=== PATIENT | female | born 1990 | race Caucasian/White ===

== ENCOUNTER 2022-07-19 18:28 | Outpatient (CLI) | payer BC, SELFPAY ==
--- OUTSIDE RECORDS SUMMARY | 2022-07-19 18:32 | XMS_ITS ---
:1990 Author Care Team Providers Name Role Phone Erendira Aguilar Primary Care Provider Unavailable Allergies Code Code System Name Reaction Severity Status Onset NKDA ? Notes: 03/27/2020: NO KNOWN DRUG ALLER GIES *Note: 09/02/2019 - Medications Name Status Start Date Stop Date ? ? aspirin 81 mg chewable tablet Completed ? erythromycin 5 mg/gram (0.5 %) eye ointment Completed ? 05/26/2020 hydrocodone 5 mg-acetaminophen 325 mg tablet Completed ? 05/26/2020 hydroxyzine pamoate 25 mg capsule Completed ? 05/26/2020 ibuprofen 200 mg tablet Completed ? 05/26/20 ibuprofen 600 mg tablet Completed ? 05/26/20 June FE 1.5/30 (28) 1.5 mg-30 mcg (21)/75 mg (7) tablet Active ? Not available TAKE 1 TABLET BY MOUTH EVERY DAY DIRECTED norethindrone acetate 1.5 mg-ethinyl estradiol 30 mcg tablet Act guy ? Not available Take one tablet po qd as directed oxycodone 5 mg tablet Completed ? 05/26/2020 paroxetine 10 mg tablet Active ? Not avai lable paroxetine 20 mg tablet Active ? Not avai lable Take one tablet po qd Senexon-S 8.6 mg-50 mg tablet Completed ? Problems None recorded. Procedures Date Name Performed by ? ? Insert Intrauterine Device Information n ot available Notes: *Surgery Date: 05/17/11 *Notes: ParaGard ? Remove Intrauterine Device Information n ot available Notes: *Surgery Date: 07/08/11 *Notes: Partial expuslion, removed ? Section Information not jaquiai labangela Notes: *Surgery Date: 07-28 *Notes: 08-15-18 Repeat c/s - Eduardo 08-20-12 LASHNADA - Janice Alfred 02/11/2021 US, Pelvis, Transabdominal + Transvagina l [id number] [place] [address] (Work Place) Results Lab Results Date Name Specimen Result Interpretation Description Value Range Status Address ? 05/26/2020 Hemoglobin ? Fingerstick 13.3 12.0-15.0 ? [id number]: (Hb), Hemoglobin g/dL g/dL [address] [facility] [place] [address], [address] [facility] [place] Blood Past Encounters 03/17/2021 Mixed Anxiety and Depressive Disorder Erendira Aguilar CNM: [address] [facility], [place] [email or web address], [address] [address], [place]. 02/11/2021 Congenital Uterine Anomaly Erendira Aguilar CNM: [address] [facility], [place] pritchard, [address] [address], Ph. 02/11/2021 Amenorrhea Carli Argueta MD: [address] [facility] [place], [address] [address], Ph. 02/05/2021 Mixed Anxiety and Depressive Disorder; C ramping Pain Erendira Aguilar CNM: [address] [facility], [place] corey, [address] [address], Ph. Social History Tobacco Smoking Status Former Smoker Vaccine List Vaccine Type HPV, unspecified formulation 12/31/2015 HPV9 03/16/2016 07/18/2016 influenza, injectable, quadrivalent, pre servative free 06/25/2018 influenza, seasonal, injectable 05/28/2012 Tdap 05/10/2005 05/10/2005 10/02/2012 06/25/2018 Plan of Care Reminders Provider Appointments None recorded. ? ? Lab None recorded. ? ? Referral None recorded. ? ? Procedures None recorded. ? ? Surgeries None recorded. ? ? Imaging None recorded. ? ? Vitals 02/11/2021 10:30AM G_OFFICE VISIT Height Weight BMI Blood Pressure 4 ft 11 in 134/88 mm[Hg] 02/05/2021 09:30AM G_OFFICE VISIT Height Weight BMI Blood Pressure 4 ft 11 in 193 lbs 39 kg/m2 138/90 mm[Hg] 05/26/2020 11:00AM G_ANNUAL EXAM Height Weight BMI Blood Pressure 4 ft 11 in 190.2 lbs 38.4 kg/m2 130/88 mm[Hg] 09/24/2018 Height Weight BMI Blood Pressure 4 ft 11.04 in 164.38 lbs 33.20 kg/m2 118/76 mm[Hg] 08/23/2018 Height Weight BMI Blood Pressure 4 ft 11.04 in 173.5 lbs 35.04 kg/m2 118/82 mm[Hg] 01/10/2018 Height Weight BMI Blood Pressure 4 ft 11.04 in 157 lbs 31.71 kg/m2 110/78 mm[Hg] 01/11/2017 Height Weight BMI Blood Pressure 4 ft 11.04 in 155 lbs 31.31 kg/m2 100/76 mm[Hg] 01/28/2016 Height Weight BMI Blood Pressure 4 ft 11.04 in 135 lbs 27.27 kg/m2 108/60 mm[Hg] 01/18/2016 Height Weight BMI Blood Pressure 4 ft 11.04 in 135 lbs 27.27 kg/m2 118/72 mm[Hg] 01/04/2016 Height Blood Pressure 4 ft 11.04 in 102/70 mm[Hg] 12/31/2015 Height Weight BMI Blood Pressure 4 ft 11.04 in 136 lbs 27.47 kg/m2 118/72 mm[Hg] 07/10/2015 Height Weight BMI Blood Pressure 4 ft 11.04 in 135 lbs 27.27 kg/m2 108/72 mm[Hg] 01/06/2015 Height Weight BMI Blood Pressure 4 ft 11.04 in 131.19 lbs 26.50 kg/m2 106/70 mm[Hg] 12/23/2013 Height Weight BMI Blood Pressure 4 ft 11.04 in 113 lbs 22.82 kg/m2 90/62 mm[Hg] 11/13/2013 Height Weight BMI Blood Pressure 4 ft 11.04 in 113 lbs 22.82 kg/m2 130/82 mm[Hg] 10/03/2013 Height Weight BMI Blood Pressure 4 ft 11.04 in 113 lbs 22.82 kg/m2 104/70 mm[Hg] 07/15/2013 Height Weight BMI Blood Pressure 4 ft 11.04 in 121 lbs 24.44 kg/m2 104/70 mm[Hg] 04/05/2013 Height Weight BMI Blood Pressure 4 ft 11.04 in 123.63 lbs 24.97 kg/m2 102/68 mm[Hg] 10/02/2012 Height Weight BMI Blood Pressure 4 ft 11.04 in 136.38 lbs 27.54 kg/m2 96/62 mm[Hg] 09/03/2012 Height Weight BMI Blood Pressure 4 ft 11.04 in 141 lbs 28.48 kg/m2 102/64 mm[Hg] 08/30/2012 Height Weight BMI Blood Pressure 4 ft 11.04 in 142 lbs 28.68 kg/m2 96/60 mm[Hg] 01/04/2012 Height Weight BMI Blood Pressure 4 ft 11.04 in 122 lbs 24.64 kg/m2 120/76 mm[Hg] 07/08/2011 Height Weight BMI Blood Pressure 4 ft 11.04 in 117.5 lbs 23.73 kg/m2 102/64 mm[Hg] 04/18/2011 Height Weight BMI Blood Pressure 4 ft 11.04 in 110 lbs 22.22 kg/m2 94/52 mm[Hg]
[2022-07-19 21:48] LABS: Chloride* 107 mmol/L (96-114); Potassium* 4.8 mmol/L (3.6-5.1); Sodium* 138 mmol/L (135-149)
[2022-07-19 21:51] LABS: Blood Urea Nitrogen* 16 mg/dL (5-24); Calcium* 9.4 mg/dL (8.4-10.6); Carbon Dioxide* 23 mmol/L (20-32); Creatinine* 0.8 mg/dL (0.5-1.5); Estimated Glomerular Filt Rate 102 ml/min; Glucose* 94 mg/dL (60-115)
[2022-07-19 23:10] LABS: Free T4 Free Thyroxine* 0.87 ng/dL (0.70-1.85)
== END 2022-07-19 18:29 | disposition home or self-care (01) ==
PROVIDERS: PCP Physician Assistant Medical; Visit Provider Emergency Medicine
DX: R63.5 Abnormal weight gain (principal); R03.0 Elevated blood-pressure reading, without diagnosis of hypertension
CPT/HCPCS: 80048; 84439; 84443

== ENCOUNTER 2022-12-07 15:14 | Outpatient (CLI) | payer BC, SELFPAY | END 2022-12-07 15:15 | disposition home or self-care (01) | PROVIDERS: PCP Physician Assistant Medical; Visit Provider Physician Assistant Medical | DX: I10 Essential (primary) hypertension (principal); R63.4 Abnormal weight loss; R41.9 Unspecified symptoms and signs involving cognitive functions and awareness | CPT/HCPCS: 80076; 82088; 83690; 84244; 84443 ==